=== PATIENT | male | born 1975 | race Two or more races ===

== ENCOUNTER 2018-05-03 00:26 | Emergency (ER) | payer MEDICAID ==
[~2018-05-03] VITALS: Ht 160 cm; Wt 79.4 kg
[2018-05-03] MEDS ORDERED: CEPHALEXIN500 M1 ORAL (00:41)
[2018-05-03 00:44] VITALS: BP 140/75
--- NOTE | 2018-05-03 01:10 | Emergency Room Report ---
History of Present Illness General Chief Complaint: Skin Rash/Abscess Source: Patient Present Illness HPI Patient presents with complaints of discomfort to the rectal area for over the past 2 months Patient reports that he was seen by his clinic primary physician and put on antibiotics He has noticed discharge from the area Denies any fevers or chills Denies any trauma denies any chest pain or shortness of breath He also has noticed some discharge in his underwear denies any pain with defecation Allergies: Coded Allergies: No Known Allergies (Unverified , 05/03/18) Patient History Past Medical History: see triage record Pertinent Family History: none Reviewed Nursing Documentation: PMH: Agreed; PSxH: Agreed Nursing Documentation-PMH Past Medical History: No Stated History Review of Systems All Other Systems: negative except mentioned in HPI Physical Exam Vital Signs Date Time Temp Pulse Resp B/P (MAP) Pulse Ox O2 Delivery O2 Flow Rate FiO2 05/03/18 00:32 98.1 102 16 140/75 98 Room Air Sp02 EP Interpretation: reviewed, normal General Appearance: well appearing, no apparent distress Head: normocephalic, atraumatic Eyes: bilateral eye PERRL, bilateral eye EOMI ENT: normal pharynx Neck: full range of motion, supple Respiratory: lungs clear Cardiovascular #1: regular rate, rhythm Gastrointestinal: non tender, soft, no mass Rectal: other - There is a small area approximately 2:00 region, approximately 1 cm out of the rectal area laterally, there is a small open wound, there is small discharge noted from the region, no obvious fluctuance, the rectal exam itself does not connect with this area Genitourinary: no CVA tenderness Musculoskeletal: normal inspection Neurologic: alert, oriented x3, responsive Skin: other - As above Lymphatic: no adenopathy Medical Decision Making Diagnostic Impression: Primary Impression: Abscess ER Course Given the patient's history and exam There does appear to be evidence of an infectious pathology I cannot palpate an obvious fluctuance or fullness there is an opening with some discharge This raises the question of further internal fistulas, versus a more superficial pathology The patient's symptoms have been ongoing for the past 2 months I feel patient requires appropriate outpatient follow-up Initial blood work is appropriate Patient does not appear septic or toxic Is placed on further broad-spectrum antibiotics and will have referral to specialty surgery Labs Test 05/03/18 01:33 05/03/18 01:43 Sodium Level 136 MMOL/L (136-145) Potassium Level 3.3 MMOL/L (3.5-5.1) Chloride Level 102 MMOL/L (98-107) Carbon Dioxide Level 26 MMOL/L (21-32) Anion Gap 8 mmol/L (5-15) Blood Urea Nitrogen 20 mg/dL (7-18) Creatinine 0.9 MG/DL (0.55-1.30) Estimat Glomerular Filtration Rate > 60 mL/min (>60) Glucose Level 111 MG/DL (74-106) Calcium Level 9.1 MG/DL (8.5-10.1) White Blood Count 6.9 K/UL (4.8-10.8) Red Blood Count 5.21 M/UL (4.70-6.10) Hemoglobin 16.2 G/DL (14.2-18.0) Hematocrit 45.4 % (42.0-52.0) Mean Corpuscular Volume 87 FL (80-99) Mean Corpuscular Hemoglobin 31.1 PG (27.0-31.0) Mean Corpuscular Hemoglobin Concent 35.7 G/DL (32.0-36.0) Red Cell Distribution Width 9.9 % (11.6-14.8) Platelet Count 200 K/UL (150-450) Mean Platelet Volume 6.9 FL (6.5-10.1) Neutrophils (%) (Auto) 60.8 % (45.0-75.0) Lymphocytes (%) (Auto) 31.2 % (20.0-45.0) Monocytes (%) (Auto) 6.4 % (1.0-10.0) Eosinophils (%) (Auto) 0.9 % (0.0-3.0) Basophils (%) (Auto) 0.8 % (0.0-2.0) Last Vital Signs Date Time Temp Pulse Resp B/P (MAP) Pulse Ox O2 Delivery O2 Flow Rate FiO2 05/03/18 00:44 98.1 72 16 140/75 98 Room Air Status: improved Disposition: HOME, SELF-CARE Condition: Improved Scripts Hydrocortisone Hc 2.5% Cream (ANUSOL-HC 2.5% CREAM) Y Cr 1 INCH RC BID for 5 Days, GM Prov: Ben Calhoun DO 05/03/18 Ibuprofen* (MOTRIN*) 600 Mg Tablet 600 MG ORAL Q8H PRN for For Pain, #20 TAB 0 Refills Prov: Ben Calhoun DO 05/03/18 Trimethoprim/Sulfamethoxazole 160/800* (BACTRIM DS TABLET*) 1 Each Tablet 1 TAB ORAL Q12H, #14 TAB 0 Refills Prov: Ben Calhoun DO 05/03/18 Cephalexin* (KEFLEX*) 500 Mg Capsule 500 MG ORAL EVERY 6 HOURS for 14 Days, CAP Prov: Ben Calhoun DO 05/03/18 Referrals: NOT CHOSEN IPA/MD,REFERRING (PCP) Additional Instructions: Patient is provided with the discharge instructions notified to follow up with primary doctor in the next 2-3 days otherwise return to the er with any worsening symptoms. Please note that this report is being documented using Couchsurfing technology. This can lead to erroneous entry secondary to incorrect interpretation by the dictating instrument. Ben Calhoun DO May 03, 2018 01:10
[2018-05-03 01:49] LABS: BASOPHILS % (AUTO) 0.8 % (0.0-2.0); EOSINOPHILS % (AUTO) 0.9 % (0.0-3.0); HEMATOCRIT 45.4 % (42.0-52.0); HEMOGLOBIN 16.2 G/DL (14.2-18.0); LYMPHOCYTES % (AUTO) 31.2 % (20.0-45.0); MEAN CORPUSCULAR VOLUME 87 FL (80-99); MONOCYTES % (AUTO) 6.4 % (1.0-10.0); NEUTROPHILS % (AUTO) 60.8 % (45.0-75.0); PLATELET COUNT 200 K/UL (150-450); RED BLOOD COUNT 5.21 M/UL (4.70-6.10); RED CELL DISTRIBUTION WIDTH 9.9 % (11.6-14.8); WHITE BLOOD COUNT 6.9 K/UL (4.8-10.8)
[2018-05-03 01:50] LABS: ANION GAP 8 mmol/L (5-15); BLOOD UREA NITROGEN 20 mg/dL (7-18); CALCIUM 9.1 MG/DL (8.5-10.1); CARBON DIOXIDE 26 MMOL/L (21-32); CHLORIDE 102 MMOL/L (98-107); CREATININE 0.9 MG/DL (0.55-1.30); POTASSIUM 3.3 MMOL/L (3.5-5.1); SODIUM 136 MMOL/L (136-145)
[2018-05-03] MEDS ORDERED: ANUSOL-HC30 GM RC (02:05)
[2018-05-03] MEDS ORDERED: IBUPROFEN600 MG ORAL (02:05)
[2018-05-03] MEDS ORDERED: BACTRIM DS TAB1 EAC1 ORAL (02:05)
[2018-05-03] MEDS ORDERED: CEPHALEXIN500 MG ORAL (02:05)
[2018-05-03 02:12] VITALS: BP 135/73
== END 2018-05-03 02:14 | disposition home or self-care (01) ==
LOC: EMR 01:07
DX: K61.1 Rectal abscess (principal)
CPT/HCPCS: 36415; 80048; 85025; 99284